=== PATIENT | female | born 2000 | race African-American/Black ===

== ENCOUNTER 2025-10-11 02:27 | Emergency (ER) | payer OTHER ==
[2025-10-11] MEDS ORDERED: Albuterol 2.5 MG (0.5 mL) NEB ONE (02:58)
[2025-10-11] MEDS ORDERED: Albuterol 2.5 MG (3 mL) NEB ONE (02:58)
[2025-10-11] MEDS ORDERED: Dexamethasone 10 MG/ML VIAL ONE (04:20)
== END 2025-10-11 04:00 | disposition home or self-care (01) ==
LOC: CSHERS 02:27
DX: J45.909 Unspecified asthma, uncomplicated (principal); J06.9 Acute upper respiratory infection, unspecified; I10 Essential (primary) hypertension; F17.200 Nicotine dependence, unspecified, uncomplicated; Z79.51 Long term (current) use of inhaled steroids
CPT/HCPCS: 94644; 94760; J1100; J7611